=== PATIENT | male | born 1955 | race Caucasian/White ===

== ENCOUNTER 2018-08-08 06:33 | Observation (INO) | payer OTHER ==
[~2018-08-08] VITALS: Ht 175.3 cm; Wt 106.6 kg
--- NOTE | ~2018-08-08 | CATHLAB ---
[facility] [place] [address] INVASIVE PROCEDURE REPORT Name: SHANKAR HALEY Room #: 206-P [facility] IN [facility]#: [id number] Admission: 08/08/18 Attend Phys: Steven Mancilla, Discharge: 08/09/18 Date of : 59 Date of Service: 08/14/18 1153 Report #: [id number] THIS REPORT FOR: //name// APPROVED REPORT Study performed: 08/08/2018 08:57:29 Patient Details Patient Status: Out-Patient Room #: The patient is a 63 year-old male Event Personnel Steven Mancilla Typing Pool Supervisor, Mack Oconnell, Gregory Salcedo RN RN, Komal Saini RTR, CONFIGURATION CONSULTANT Scrub Procedures Performed Left Heart Cath w/or w/o Coronaries [id number] [facility] Place w/wo Plasty Single LAD [id number] Indication Chest pain Procedure Narrative A PINNACLE 6FR Sheath #[id number] sheath was inserted into the RFA^. Coronary angiography was performed using coronary diagnostic catheters. The right coronary system was accessed and visualized with a JR4 catheter. The left coronary system was accessed and visualized with a 6FR JL5 #[id number] catheter. The left ventricle was accessed and visualized with a PIGTAIL catheter. Left ventricular/Aortic Valve gradient assessed via catheter pullback. Left ventriculogram was performed in 30 degree projection. Closure device was deployed with a 6 Fr MYNXGRIP 6/7F #[id number]. There was no hematoma. Intraoperative Conscious Sedation Sedation start time: 9.06 Case end Time: 10.21 Fentanyl 50 mcg Versed mg Fluoro Time: 4258.00 minutes Dose: DAP 75178 cGycm2 4258 mGy Contrast Type and Amount: Omnipaque 300 ml Hemodynamics The aortic pressure is 161/76 mmHg with a mean of 87 mmHg. The left [facility] [place] [address] INVASIVE PROCEDURE REPORT Name: SHANKAR HALEY Room #: 206-P [facility] IN ..#: [id number] Admission: 08/08/18 Attend Phys: Steven Mancilla, Discharge: 08/09/18 Date of : 59 Date of Service: 08/14/18 1153 Report #: [id number] ventricular pressure is 133/19 mmHg with a mean of mmHg. The left ventricular end diastolic pressure is 25 mmHg. There was no gradient across the aortic valve upon pullback. Pullback from the left ventricle to the aorta revealed no gradient across the aortic valve. PCI Technique Lesion Percutaneous coronary intervention was performed on the proximal left anterior descending artery segment. A LAUNCHER 6FR EBU 4.5 #[id number] Guide Catheter was used to engage the ostium. A Luge Wire .014 x 182CM #[id number] Interventional Guidewire was used to cross the lesion. BALLOON DILATION A Balloon catheter Sprinter OTW 3.0 x 12 #[id number] was inserted and inflated up to 10.00atm for 15seconds. Additional Inflation: 10.00atm for 9seconds. Additional Inflation: 10.00atm for 18seconds. STENT DEPLOYMENT A drug-eluting stent RESOLUTE RL OTW 3.5 X 15 #[id number] was inserted and inflated up to 16.00atm for 35seconds. Conclusion #1 successful PTCA stent of a high-grade proximal LAD lesion subtotaled with placement of a 3.5 Rl drug-eluting stent post I to 3.7 mm in size #2 diagonal branch which originated from this lesion was able to restore flow post procedure #3 left main with mild disease #4 circumflex OM nondominant with mild irregularity large OM system ostial lesion of 40-50% is noted on the circumflex #5 anatomically dominant right coronary artery giving rise to a smaller PDA KEVYN no occlusive disease #6 normal left jugular size and systolic function EF 60% Recommendations and plan: Continue aggressive risk factor modification. Dual antiplatelet therapy one year. Transfer to CCU to follow stent protocol <ELECTRONICALLY SIGNED> By: Steven Mancilla MD, FACC 08/14/18 1153 1153 115 Steven Mancilla MD, FACC /INF
--- NOTE | ~2018-08-08 | EKG ---
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 : 1955 Requested By: Caridad Arambula Order Number: [id number] MD: Enrique Gomez Measurements Intervals [place] Rate: 62 P: 35 LA: 173 QRS: -24 QRSD: 105 T: 135 QT: 402 QTc: 409 Interpretive Statements Sinus rhythm Inferior infarct, old Nonspecific T wave abnormality No previous ECG available for comparison Electronically Signed On 08-09-2018 8:27:31 SUPPLY CATALOGUER by Enrique Gomez [email or web address] <ELECTRONICALLY SIGNED> By: Enrique Gomez MD, [facility] 08/09/18 0827 0729 0729 Enrique Gomez MD, FACC /EPI
[2018-08-08 07:05] VITALS: BP 169/87
[2018-08-08] MEDS ORDERED: NORVASC5 MG PO (07:12)
[2018-08-08] MEDS ORDERED: CARDURA4 MG PO (07:13)
[2018-08-08] MEDS ORDERED: ASPIRIN325 PO (07:13)
[2018-08-08] MEDS ORDERED: CLONIDINE HCL0.3 M3 PO (07:13)
[2018-08-08] MEDS ORDERED: UNICOMPLEX M TA1 TA1 PO (07:14)
[2018-08-08] MEDS ORDERED: OMEGA-31000 M1 PO (07:14)
[2018-08-08] MEDS ORDERED: FENOFIBRATE160 MG PO (07:14)
[2018-08-08] MEDS ORDERED: METFORMIN HCL500 MG PO (07:14)
[2018-08-08] MEDS ORDERED: OMEPRAZOLE 20 M20 M1 PO (07:15)
[2018-08-08] MEDS ORDERED: HYDROCHLOROTHIA25 M2 PO (07:16)
[2018-08-08] MEDS ORDERED: SORINE 80 MG TA80 M1 PO (07:16)
[2018-08-08 07:21] LABS: HEMATOCRIT 52.1 % (42.0-52.0); MCH 30.8 pg (26.0-34.0); MCHC 34.6 g/dL (28.0-37.0); RBC 5.85 mil/uL (4.50-6.00); RDW 13.8 % (10.5-14.5); WBC 6.8 thou/uL (4.0-11.0)
[2018-08-08 07:34] LABS: CALCIUM 9.4 mg/dL (8.5-10.1); CREATININE 1.1 mg/dL (0.7-1.3); POTASSIUM 3.9 mmol/L (3.5-5.1)
[2018-08-08 10:45] VITALS: BP 130/89
[2018-08-08 14:58] VITALS: BP 135/82
[2018-08-08 19:55] VITALS: BP 136/91
[2018-08-09 00:24] VITALS: BP 128/69
[2018-08-09 03:25] LABS: HEMATOCRIT 48.2 % (42.0-52.0); HEMOGLOBIN 16.3 gm/dL (14.0-18.0); MCH 29.9 pg (26.0-34.0); MCHC 33.7 g/dL (28.0-37.0); MCV 88.6 fL (80.0-100.0); RBC 5.44 mil/uL (4.50-6.00); RDW 13.9 % (10.5-14.5); WBC 9.9 thou/uL (4.0-11.0)
[2018-08-09 03:43] LABS: POTASSIUM 4.3 mmol/L (3.5-5.1); TROPONIN-I 0.14 ng/mL (<0.06)
[2018-08-09 05:00] VITALS: BP 153/91
[2018-08-09 07:30] VITALS: BP 166/114
[2018-08-09] MEDS ORDERED: EFFIENT10 MG PO (07:38)
[2018-08-09] MEDS ORDERED: METFORMIN HCL500 MG PO (07:38)
[2018-08-09] MEDS ORDERED: ATORVASTATIN CA40 MG PO (07:38)
[2018-08-09] MEDS ORDERED: ASPIRIN325 PO (07:38)
[2018-08-09] MEDS ORDERED: BYSTOLIC 5 MG5 M1 PO (08:10)
[2018-08-09 08:24] VITALS: BP 153/91
== END 2018-08-09 10:50 | disposition home or self-care (01) ==
LOC: CATH 06:33 → 2N 11:02 → CATH 13:24 → ENTRNSPT 08-09 10:03 → EDTRNSPTSTS 08-09 10:11 → 2N 08-09 10:50
PROVIDERS: Internal Medicine Cardiovascular Disease; Nurse Practitioner Gerontology
DX: I25.10 Atherosclerotic heart disease of native coronary artery without angina pectoris (principal); I65.29 Occlusion and stenosis of unspecified carotid artery; I70.1 Atherosclerosis of renal artery; E11.51 Type 2 diabetes mellitus with diabetic peripheral angiopathy without gangrene; I10 Essential (primary) hypertension; I48.91 Unspecified atrial fibrillation; E11.39 Type 2 diabetes mellitus with other diabetic ophthalmic complication; H42 Glaucoma in diseases classified elsewhere; E78.00 Pure hypercholesterolemia, unspecified; R53.83 Other fatigue; Z79.899 Other long term (current) drug therapy

== ENCOUNTER 2018-09-03 05:19 | Inpatient (IN) | payer OTHER ==
[2018-08-28 14:19] LABS: ABSOLUTE NEUTROPHILS 4.7 thou/uL (1.4-8.2); BASOPHILS 0.5 % (0.0-2.0); EOSINOPHILS 3.4 % (0.0-3.0); HEMATOCRIT 51.5 % (42.0-52.0); HEMOGLOBIN 17.9 gm/dL (14.0-18.0); LYMPHOCYTES 16.7 % (24.0-44.0); MCHC 34.8 g/dL (28.0-37.0); MCV 88.8 fL (80.0-100.0); MONOCYTES 8.3 % (1.0-8.0); PLATELET COUNT 170 thou/uL (150-400); POLYS 71.1 % (36.0-66.0); RBC 5.79 mil/uL (4.50-6.00); RDW 14.5 % (10.5-14.5); WBC 6.6 thou/uL (4.0-11.0)
[2018-08-28 14:20] LABS: URINE BILIRUBIN NEGATIVE (Negative); URINE BLOOD NEGATIVE (Negative); URINE CLARITY CLEAR; URINE COLOR YELLOW; URINE GLUCOSE-RANDOM* TRACE (Negative); URINE KETONES NEGATIVE (Negative); URINE LEUKOCYTES-REFLEX NEGATIVE (Negative); URINE NITRITE-REFLEX NEGATIVE (Negative); URINE PROTEIN (DIPSTICK) NEGATIVE (Negative); URINE SPECIFIC GRAVITY >= 1.030 (1.005-1.035); URINE UROBILINOGEN 0.2 E.U./dl (0.2-1.0)
[2018-08-28 14:31] LABS: APTT 28.6 Seconds (24.5-32.8); PROTIME 10.7 Seconds (9.3-11.4)
[2018-08-28 14:37] LABS: ALBUMIN 4.1 g/dL (3.4-5.0); CALCIUM 9.9 mg/dL (8.5-10.1); CREATININE 0.9 mg/dL (0.7-1.3); POTASSIUM 4.2 mmol/L (3.5-5.1); TOTAL BILIRUBIN 1.5 mg/dL (<0.1-1.0); TOTAL PROTEIN 7.5 g/dL (6.4-8.2)
[2018-09-03] VITALS (29 sets, daily range): BP systolic 99–125; BP diastolic 54–74
[~2018-09-03] VITALS: Ht 177.8 cm; Wt 107.5 kg
--- NOTE | ~2018-09-03 | O ---
[facility] [place] [address] OPERATIVE REPORT Name: SHANKAR HALEY Room #: 242-P [facility] IN M.R.#: [id number] Admission: 09/03/18 Attend Phys: Emmanuel Cobian MD Discharge: 09/04/18 Date of : 59 Report #: [id number] THIS REPORT FOR: //name// CC: Yasmani Aretha Cobian DATE OF SERVICE: 09/03/2018 PREOPERATIVE DIAGNOSIS: Left carotid artery stenosis. POSTOPERATIVE DIAGNOSIS: Left carotid artery stenosis. PROCEDURE: Left carotid endarterectomy with patch closure. SURGEON: Emmanuel Cobian MD. ANESTHESIA: General. INDICATION: The patient is a 63-year-old seen for Dr. Treadwell. The patient had a 95+% left internal carotid stenosis. This was asymptomatic. The patient also has a history of coronary stents by Dr. Mancilla in the recent past. FINDINGS AND TECHNIQUE: After general anesthesia was established, an incision was made in the left neck. The common facial vein was divided. The common, external, and internal carotid arteries were identified and controlled. Heparin was given. The carotid vessels were occluded. Continuous electroencephalographic monitoring was performed in the operating room. When the carotid vessels were occluded, no EEG changes were noted. The carotid arteriotomy was made. The endarterectomy was performed. The neointima was inspected and all loose debris was removed. Tacking sutures were placed at the transition zone. When the endarterectomy was deemed satisfactory, the arteriotomy was closed with a pericardial patch and running Prolene suture. Prior to finishing the closure, the carotid vessels were backbled. Flow was established first through the external, then the internal carotid artery. 50 mg of protamine was given to reverse the heparin. When hemostasis was satisfactory, a drain was brought out through the bottom pole of the incision. The wound was closed in layers and the patient was taken to the recovery area in [facility] [address] [place] [address] OPERATIVE REPORT Name: SHANKAR HALEY Room #: 242-P [facility] IN .R.#: [id number] Admission: 09/03/18 Attend Phys: Emmanuel Cobian MD Discharge: 09/04/18 Date of : 59 Report #: [id number] good condition where his neurologic progress was monitored. All counts were reported as correct. <ELECTRONICALLY SIGNED> By: Emmanuel Cobian MD 09/09/18 0846 1302 1356 Emmanuel Cobian MD /nt
--- NOTE | ~2018-09-03 | PATH ---
[facility] [address] [place] [address] PATHOLOGY RPT PROCEDURE Name: SHANKAR HALEY Room #: 242-P [facility] IN .R.#: [id number] Admission: 09/03/18 Date of : 59 Discharge: 09/04/18 Report #: [id number] Path Case #: [id number] [facility] Accession Number: [id number] . 01 Material submitted: . LEFT CAROTID PLAQUE . 01 Clinical history: . Carotid stenosis left . 02 Diagnosis: Left carotid plaque, removal: - Calcific atherosclerosis as well as thrombus. (IUV:automation specialist; 09/04/2018) MBR/09/05/2018 . 02 Electronically signed: . Adriana Fernandes MD, Pathologist NPI- [id number] . 01 Gross description: . The specimen is received in formalin, labeled "Berny, Shankar, left carotid plaque" and consists of a segment of elongate and rubbery orange-grady tissue measuring 3.9 x 1.0 x 0.6 cm. The lumen is partially calcified and filled with hemorrhagic material which ranges from 0.2-0.5 cm in diameter. Drier Take Off Tender sections are submitted in A1 following decalcification. (SDY; 09/03/2018) SYU/SYU . 02 Pathologist provided ICD-10: I65.22 . 02 CPT . 902747, 399020 Specimen Comment: A courtesy copy of this report has been sent to Specimen Comment: [phone], . Specimen Comment: Report sent to / DR BROWN Performed at: [address], [place] [id number] MD Uriel Sorto MD Phone: [phone] Performed at: [address] [id number] MD Adriana Fernandes MD Phone: [phone]
[~2018-09-03 05:19] MED LIST: ASPIRIN325 PO; ATORVASTATIN CA40 MG PO; BYSTOLIC 5 MG5 M1 PO; CARDURA4 MG PO; CLONIDINE HCL0.3 M3 PO; EFFIENT10 MG PO; FENOFIBRATE160 MG PO; HYDROCHLOROTHIA25 M2 PO; METFORMIN HCL500 MG PO; NORVASC5 MG PO; OMEGA-31000 M1 PO; OMEPRAZOLE 20 M20 M1 PO; SORINE 80 MG TA80 M1 PO; TESTOSTERON100 MG/ML IM; TIMOLOL MALEATE5 M1 OPHTHALMIC; UNICOMPLEX M TA1 TA1 PO; VITAMIN D35000 UNI1 PO; XALATAN2.5 ML OPHTHALMIC
[2018-09-04] VITALS (27 sets, daily range): BP systolic 103–127; BP diastolic 46–64
[2018-09-04 05:14] LABS: HEMATOCRIT 43.8 % (42.0-52.0); HEMOGLOBIN 14.9 gm/dL (14.0-18.0); MCH 30.2 pg (26.0-34.0); MCV 88.9 fL (80.0-100.0); RBC 4.92 mil/uL (4.50-6.00); RDW 14.6 % (10.5-14.5); WBC 10.4 thou/uL (4.0-11.0)
[2018-09-04 05:21] LABS: CALCIUM 8.3 mg/dL (8.5-10.1); CREATININE 0.7 mg/dL (0.7-1.3); POTASSIUM 3.4 mmol/L (3.5-5.1)
== END 2018-09-04 16:10 | disposition home or self-care (01) | DRG 39 ==
LOC: ICU 05:19 → TBA 05:19 → PRE 12:42 → ICU 12:51 → PRE 15:59 → ICU 09-04 16:10
PROVIDERS: Surgery Vascular Surgery
DX: I65.22 Occlusion and stenosis of left carotid artery (principal); I10 Essential (primary) hypertension; Z79.899 Other long term (current) drug therapy; Z91.048 Other nonmedicinal substance allergy status
CPT/HCPCS: 10078; 50010; 50101; 50386; 50417; 50455; 51301; 51751; 52279; 54118; 56524; 56526; 56528; 56531; 56534; 62110; 62900; 65020; 65043; 70005

== ENCOUNTER 2020-07-01 20:09 | Emergency (ER) | payer OTHER ==
[~2020-07-01] VITALS: Ht 175.3 cm; Wt 109.8 kg
[2020-07-01 21:48] LABS: URINE BILIRUBIN NEGATIVE (Negative); URINE BLOOD TRACE (Negative); URINE CLARITY CLEAR; URINE COLOR YELLOW; URINE GLUCOSE-RANDOM* NEGATIVE (Negative); URINE KETONES NEGATIVE (Negative); URINE LEUKOCYTES-REFLEX TRACE (Negative); URINE NITRITE-REFLEX NEGATIVE (Negative); URINE PROTEIN (DIPSTICK) TRACE (Negative)
[2020-07-01 21:49] LABS: BASOPHILS 0.2 % (0.0-2.0); EOSINOPHILS 0.4 % (0.0-3.0); HEMATOCRIT 41.7 % (42.0-52.0); HEMOGLOBIN 14.1 gm/dL (14.0-18.0); LYMPHOCYTES 6.5 % (24.0-44.0); MCH 29.2 pg (26.0-34.0); MCHC 33.7 g/dL (28.0-37.0); MCV 86.7 fL (80.0-100.0); MONOCYTES 4.3 % (1.0-8.0); PLATELET COUNT 191 thou/uL (150-400); POLYS 88.6 % (36.0-66.0); RBC 4.81 mil/uL (4.50-6.00); RDW 14.4 % (10.5-14.5); WBC 11.2 thou/uL (4.0-11.0)
[2020-07-01 21:59] LABS: CREATININE 1.3 mg/dL (0.7-1.3); POTASSIUM 3.8 mmol/L (3.5-5.1)
[2020-07-01 22:05] LABS: ALBUMIN 4.1 g/dL (3.4-5.0); TOTAL BILIRUBIN 1.4 mg/dL (0.2-1.0); TOTAL PROTEIN 7.6 g/dL (6.4-8.2)
[2020-07-01] MEDS ORDERED: ASA81BEC PO (22:18)
[2020-07-01] MEDS ORDERED: SOTALOL80 MG PO (22:20)
[2020-07-01] MEDS ORDERED: MELATONIN5 MG SUBLING (22:21)
[2020-07-01] MEDS ORDERED: BENICAR20 MG PO (22:21)
[2020-07-01] MEDS ORDERED: ALEVE220 M1 PO (22:22)
[2020-07-01] MEDS ORDERED: OMEPRAZOLE40 MG PO (22:23)
[2020-07-02 00:21] VITALS: BP 136/67
[2020-07-02] MEDS ORDERED: ZOFRAN ODT4 MG PO (00:25)
[2020-07-02] MEDS ORDERED: NORCO 5-325 TA1 EAC2 PO (00:25)
[2020-07-02] MEDS ORDERED: FLOMAX0.4 MG PO (00:25)
== END 2020-07-02 00:46 | disposition home or self-care (01) ==
LOC: ER 20:09
PROVIDERS: Emergency Medicine
DX: N20.0 Calculus of kidney (principal); E11.9 Type 2 diabetes mellitus without complications; I10 Essential (primary) hypertension; E78.5 Hyperlipidemia, unspecified; Z91.048 Other nonmedicinal substance allergy status; Z79.82 Long term (current) use of aspirin; Z79.899 Other long term (current) drug therapy

== ENCOUNTER → 2020-09-02 | Outpatient (CLI) | payer OTHER ==
[~2020-09-02] MED LIST changes: +ALEVE220 M1 PO; +ASA81BEC PO; +BENICAR20 MG PO; +FLOMAX0.4 MG PO; +MELATONIN5 MG SUBLING; +NORCO 5-325 TA1 EAC2 PO; +OMEPRAZOLE40 MG PO; +SOTALOL80 MG PO; +ZOFRAN ODT4 MG PO
== END ==
LOC: SJCVCIMAG 08:28
PROVIDERS: ATTEND Internal Medicine Cardiovascular Disease
DX: I25.10 Atherosclerotic heart disease of native coronary artery without angina pectoris (principal); E78.5 Hyperlipidemia, unspecified; I10 Essential (primary) hypertension

== ENCOUNTER → 2021-09-12 | Outpatient (CLI) | payer OTHER | LOC: SJCVCIMAG 07:42 | PROVIDERS: ATTEND Internal Medicine Cardiovascular Disease | DX: I65.23 Occlusion and stenosis of bilateral carotid arteries (principal); I37.1 Nonrheumatic pulmonary valve insufficiency; R06.00 Dyspnea, unspecified; I25.10 Atherosclerotic heart disease of native coronary artery without angina pectoris; E78.5 Hyperlipidemia, unspecified; I10 Essential (primary) hypertension; R53.83 Other fatigue; M25.551 Pain in right hip ==